=== PATIENT | male | born 1985 | race Caucasian/White ===

== ENCOUNTER 2022-06-12 20:03 | Emergency (ER) | payer SELFPAY ==
[2022-06-12] MEDS ORDERED: LIDOCAINE 1% MPF 5 ML VIAL ONE (20:49)
[2022-06-12] MEDS ORDERED: BUPIVACAINE 0.5% PF 10 ML VIAL ONE (20:50)
[2022-06-12] MEDS ORDERED: TDAP (DIPHTH,PERTUSS(ACELL),TET VAC) 0.5 ML VIAL IMVAC ONE (20:50)
[2022-06-12] MEDS ORDERED: HYDROCODONE/APAP 5/325 MG TAB ONE (20:50)
[2022-06-12] MEDS ORDERED: IBUPROFEN 400 MG TAB ONE (20:50)
--- NOTE | 2022-06-12 20:56 | RAD REPORT ---
EXAM DESCRIPTION: RAD - Foot Left 3 View - 06/12/2022 8:43 pm CLINICAL HISTORY: Left Foot pain FINDINGS: The toenail of the first digit is avulsed. A 2 millimeter density lies adjacent to the lateral aspect of the first terminal tuft. Most likely it is chronic. No acute fracture or dislocation seen
--- NOTE | 2022-06-12 21:34 | EDPHYS ---
Physician Documentation [facility] Name: Mariano Aldana Age: 36 yrs Sex: Male : 1985 Arrival Date: 06/12/2022 Time: 20:06 Bed 7 Private MD: ED Physician Ivan Morton HPI: 06/12 20:30 This 36 yrs old Male presents to ER via Ambulatory with complaints of Toe Injury. cp Historical: - Allergies: 20:23 No Known Allergies; ha1 - Home Meds: 20:23 None [Active]; ha1 - PMHx: 20:23 None; ha1 - PSHx: 20:23 None; ha1 - Immunization history:: Adult Immunizations not up to date. - Social history:: Smoking status: Patient reports the use of cigarette tobacco products, smokes two packs cigarettes per day. Vital Signs: 20:20 BP 128 / 75; Pulse 100; Resp 15; Temp 98.5; Pulse Ox 99% on R/A; Weight 70.76 kg; ha1 Height 5 ft. 11 in. ; Pain 7/10; 21:22 BP 116 / 84; Pulse 100; Resp 16; Pulse Ox 97% on R/A; jb4 20:20 Body Mass Index 21.76 (70.76 kg, 180.34 cm) ha1 20:20 Pain Scale: Adult ha1 MDM: 20:31 Patient medically screened. 06/12 20:33 Order name: XRAY Foot LEFT 3 View; Complete Time: 21:06 cp 06/12 21:06 Interpretation: Reviewed report. 06/12 20:33 Order name: Wound Care; Complete Time: 21:27 06/12 21:30 Order name: Wound dressing cp Administered Medications: 21:09 Drug: HYDROcodone-acetaminophen PO 5 mg-325 mg 1 tabs Route: PO; pf1 21:26 Follow up: Response: No adverse reaction; Marked relief of symptoms jb4 21:09 Drug: Ibuprofen PO 800 mg Route: PO; pf1 21:26 Follow up: Response: No adverse reaction; Marked relief of symptoms jb4 21:09 Drug: Tetanus-Diphtheria Toxoid IM Adult 0.5 ml {Caddie Supervisor: [employer] ([employer]). pf1 Exp: 02/12/2023. Lot #: [id number]. } Route: IM; Site: right deltoid; 21:26 Follow up: Response: No adverse reaction jb4 21:26 Drug: Bupivacaine Infiltration (0.5 %) 5 ml {Note: Administered by ER provider..} jb4 Volume: 10 ml; Route: Infiltration; 21: Drug: Lidocaine Infiltration (1 %) 5 ml {Note: Administered by ER provider..} Volume: 5 jb4 ml; Route: Infiltration; Disposition Summary: 06/12/22 21:34 Discharge Ordered Location: Home cp Problem: new cp Symptoms: have improved cp Condition: Stable cp Diagnosis - Nail disorder, unspecified - left great toenail avulsion cp Followup: cp - With: Private Physician - When: 2 - 3 days - Reason: Worsening of condition Forms: - Medication Reconciliation Form cp - Thank You Letter cp - Antibiotic Education cp - Prescription Opioid Use cp Signatures: Dispatcher [employer] EDMS Primo Osman PA PA cp Mariano Shoemaker RN RN jb4 Arline Braxton RN RN ha1 Esther mccarthy RN RN pf1
--- NOTE | 2022-06-12 21:34 | ER ---
Nurse's Notes [facility] Name: Mariano Aldana Age: 36 yrs Sex: Male : 1985 Arrival Date: 06/12/2022 Time: 20:06 Bed 7 Private MD: Diagnosis: Nail disorder, unspecified-left great toenail avulsion Presentation: 06/12 20:20 Chief complaint: Patient states: I was opening the a door an I pulled my nail out with ha1 the door. Coronavirus screen: Vaccine status: Patient reports being unvaccinated. Ebola Screen: No symptoms or risks identified at this time. Initial Sepsis Screen: Does the patient meet any 2 criteria? No. Patient's initial sepsis screen is negative. Does the patient have a suspected source of infection? No. Patient's initial sepsis screen is negative. Risk Assessment: Do you want to hurt yourself or someone else? Patient reports no desire to harm self or others. Onset of symptoms was June 12, 2022. 20:20 Method Of Arrival: Ambulatory ha1 20:20 Acuity: KATHRYN 4 ha1 Triage Assessment: 20:23 General: Appears comfortable, Behavior is calm, cooperative. Pain: Complains of pain in ha1 Left first toenail Pain does not radiate. Pain currently is 7 out of 10 on a pain scale. EENT: No signs and/or symptoms were reported regarding the EENT system. Neuro: Level of Consciousness is awake, alert, obeys commands, Oriented to person, place, time, situation. Cardiovascular: Capillary refill < 3 seconds Patient's skin is warm and dry. Respiratory: Airway is patent Respiratory effort is even, unlabored, Respiratory pattern is regular, symmetrical. GI: No signs and/or symptoms were reported involving the gastrointestinal system. : No signs and/or symptoms were reported regarding the genitourinary system. Derm: Skin is pink, warm \T\ dry. Musculoskeletal: Circulation, motion, and sensation intact. Range of motion:. Injury Description: left foot big toe laceration. Historical: - Allergies: 20:23 No Known Allergies; ha1 - Home Meds: 20:23 None [Active]; ha1 - PMHx: 20:23 None; ha1 - PSHx: 20:23 None; ha1 - Immunization history:: Adult Immunizations not up to date. - Social history:: Smoking status: Patient reports the use of cigarette tobacco products, smokes two packs cigarettes per day. Assessment: 21:22 Reassessment: Patient appears in no apparent distress at this time. Patient and/or jb4 family updated on plan of care and expected duration. Pain level reassessed. Patient is alert, oriented x 3, equal unlabored respirations, skin warm/dry/pink. Vital Signs: 20:20 BP 128 / 75; Pulse 100; Resp 15; Temp 98.5; Pulse Ox 99% on R/A; Weight 70.76 kg; ha1 Height 5 ft. 11 in. ; Pain 7/10; 21:22 BP 116 / 84; Pulse 100; Resp 16; Pulse Ox 97% on R/A; jb4 20:20 Body Mass Index 21.76 (70.76 kg, 180.34 cm) ha1 20:20 Pain Scale: Adult ha ED Course: 20:06 Patient arrived in ED. jj6 20:09 Primo Osman PA is PHCP. cp 20:09 Ivan Morton DO is Attending Physician. cp 20:23 Triage completed. ha1 20:23 Arm band placed on left wrist. ha1 20:45 XRAY Foot LEFT 3 View In Process Unspecified. EDMS 21:24 Mariano Shoemaker, RN is Primary Nurse. jb4 Administered Medications: 21:09 Drug: HYDROcodone-acetaminophen PO 5 mg-325 mg 1 tabs Route: PO; pf1 21:26 Follow up: Response: No adverse reaction; Marked relief of symptoms 4 21:09 Drug: Ibuprofen PO 800 mg Route: PO; pf1 21:26 Follow up: Response: No adverse reaction; Marked relief of symptoms 4 21:09 Drug: Tetanus-Diphtheria Toxoid IM Adult 0.5 ml {Digital Imaging Specialist: [employer] ([employer]). pf1 Exp: 02/12/2023. Lot #: [id number]. } Route: IM; Site: right deltoid; 21:26 Follow up: Response: No adverse reaction 4 21:26 Drug: Bupivacaine Infiltration (0.5 %) 5 ml {Note: Administered by ER provider..} jb4 Volume: 10 ml; Route: Infiltration; 21:26 Drug: Lidocaine Infiltration (1 %) 5 ml {Note: Administered by ER provider..} Volume: 5 jb4 ml; Route: Infiltration; Outcome: 21:34 Discharge ordered by . cp Signatures: Dispatcher [employer] EDPrimo Smith PA PA cp Bryson, James RN RN jb4 Cynthia [email or web address] Arline Braxton RN RN ha1 Esther mccarthy RN RN pf1
[2022-06-13 01:44] VITALS: TEMP 98.7
[2022-06-13 01:49] VITALS: BP 113/46; O2SAT 96
== END 2022-06-12 21:42 | disposition home or self-care (01) ==
LOC: ER 20:03
DX: S91.202A Unspecified open wound of left great toe with damage to nail, initial encounter (principal); Z23 Encounter for immunization; F17.210 Nicotine dependence, cigarettes, uncomplicated
CPT/HCPCS: 90471; 99283; J2001

== ENCOUNTER 2023-01-04 14:27 | Emergency (ER) | payer SELFPAY ==
[2023-01-04 15:04] LABS: Absolute Lymphocytes (CBC) 2.2 K/uL (0.7-4.9); Hematocrit 37.1 % (39.6-49.0); Lymphocytes % 24.7 % (15.3-44.8); MCV 90.3 fL (80-100); MPV 9.1 fL (7.6-11.3); Platelets 191 thou/uL (152-406); RBC Red Blood Cell Count 4.11 M/uL (4.33-5.43)
[2023-01-04 15:08] LABS: Protime INR 0.93
[2023-01-04 15:28] LABS: ALT/SGPT 15 U/L (16-61); AST/SGOT 12 U/L (15-37); Albumin 3.2 g/dL (3.4-5.0); Alkaline Phosphatase 77 U/L (45-117); BUN Blood Urea Nitrogen 9 mg/dL (7-18); Bicarbonate 29 mEq/L (21-32); Bilirubin Total 0.3 mg/dL (0.2-1.0); Glomerular Filtration Rate 111 ml/min (=/>90); Glucose Level 104 mg/dL (74-106); Potassium 3.5 mEq/L (3.5-5.1); Protein, Total 6.2 g/dL (6.4-8.2); Sodium Level 143 mEq/L (136-145)
[2023-01-04 15:29] LABS: Bilirubin Direct < 0.1 mg/dL (0-0.2); Bilirubin Indirect, Calculated ND mg/dL (0.2-0.8)
[2023-01-04 16:03] LABS: Barbiturates NEGATIVE (NEGATIVE); Benzodiazepines NEGATIVE (NEGATIVE); Cocaine NEGATIVE (NEGATIVE); METHAMPHETAM POSITIVE (NEGATIVE); Opiates NEGATIVE (NEGATIVE); Phencyclidine NEGATIVE (NEGATIVE); THC Cannibis NEGATIVE (NEGATIVE)
[2023-01-04 16:13] LABS: Methadone ND (NEGATIVE)
--- NOTE | 2023-01-04 19:45 | ER ---
Nurse's Notes [facility] Name: Mariano Aldana Age: 37 yrs Sex: Male : 1985 Arrival Date: 01/04/2023 Time: 14:27 Bed 5 Private MD: Diagnosis: Suicidal ideations Presentation: 01/04 14:35 Chief complaint: Mental health deputy reports patient denies homicidal and suicidal rs5 ideation but has been posting suicidal ideation posts on social media for past week and told neighbor pt wishes to lay down in front of a moving train. Law enforcement were called and mental health deputy brought patient into the ER for a check up. 14:35 Coronavirus screen: At this time, the client does not indicate any symptoms associated rs5 with coronavirus-19. Ebola Screen: No symptoms or risks identified at this time. Initial Sepsis Screen: Does the patient meet any 2 criteria? No. Patient's initial sepsis screen is negative. Does the patient have a suspected source of infection? No. Patient's initial sepsis screen is negative. Risk Assessment: Do you want to hurt yourself or someone else? Other: Pt denies homicidal or suicidal ideation but told neighbor he wishes to lay down in front of a moving train. Onset of symptoms was January 04, 2023. 14:35 Method Of Arrival: Law Enforcement rs5 14:35 Acuity: KATHRYN 2 rs5 Historical: - Allergies: 14:40 No Known Allergies; rs5 - PMHx: 14:40 Anxiety; Depressive disorder; rs5 - PSHx: 14:35 None; rs5 - Immunization history:: Adult Immunizations unknown. - Social history:: Smoking status: Patient reports the use of cigarette tobacco products, smokes one pack cigarettes per day. Screenin:31 [facility] ED Fall Risk Assessment (Adult) History of falling in the last 3 months, lg3 including since admission No falls in past 3 months (0 pts). Abuse screen: Denies threats or abuse. Denies injuries from another. Nutritional screening: No deficits noted. Tuberculosis screening: No symptoms or risk factors identified. Assessment: 14:35 General: Appears in no apparent distress. comfortable, Behavior is calm, cooperative. rs5 Pain: Denies pain. Neuro: Level of Consciousness is awake, alert, obeys commands, Oriented to person, place, time, situation. Cardiovascular: Rhythm is regular. Respiratory: Airway is patent Respiratory effort is even, unlabored, Respiratory pattern is regular, symmetrical. GI: Abdomen is flat, non-distended, Abd is soft and non tender X 4 quads. : No signs and/or symptoms were reported regarding the genitourinary system. EENT: No signs and/or symptoms were reported regarding the EENT system. Derm: Skin is pink, warm \\T\\ dry. Musculoskeletal: Range of motion: intact in all extremities. 15:09 Reassessment: Pt placed in paper scrubs, room cleared, sitter at bedside, suicidal rs5 screen has been completed. 16:00 Reassessment: Pt in bed, eyes closed, respirations even unlabored, side rails up times rs5 two, bed in lowest position. 17:05 Reassessment: No changes from previously documented assessment. rs5 18:10 Reassessment: Patient and/or family updated on plan of care and expected duration. Pain rs5 level reassessed. Patient is alert, oriented x 3, equal unlabored respirations, skin warm/dry/pink. 19:00 General: [facility] national sales representative at bedside; pt being cooperative. km8 19:29 General: Appears in no apparent distress. comfortable, Behavior is calm, cooperative. km8 Pain: Denies pain. Neuro: No deficits noted. Lundy Agitation-Sedation Scale (RASS): 0 - Alert and Calm Level of Consciousness is awake, alert, obeys commands, Oriented to person, place, time, situation. Cardiovascular: No deficits noted. Denies chest pain, shortness of breath. Respiratory: No deficits noted. Airway is patent Respiratory effort is even, unlabored, Respiratory pattern is regular, symmetrical. GI: No deficits noted. No signs and/or symptoms were reported involving the gastrointestinal system. : No deficits noted. No signs and/or symptoms were reported regarding the genitourinary system. EENT: No deficits noted. No signs and/or symptoms were reported regarding the EENT system. Derm: Skin is intact, is healthy with good turgor, Skin is dry, Skin is normal, Skin temperature is warm. Musculoskeletal: No deficits noted. No signs and/or symptoms reported regarding the musculoskeletal system. Circulation, motion, and sensation intact. Range of motion: intact in all extremities. 20:00 Reassessment: Patient appears in no apparent distress at this time. No changes from km8 previously documented assessment. pt resting with eyes closed, in no distress at this time; with sitter at bedside. 20:33 General: Spoke with Romero from [facility] for Nurse to nurse; requested more km documents to be faxed, notified desk tech. 21:00 Reassessment: Patient appears in no apparent distress at this time. No changes from km8 previously documented assessment. pt resting comfortably with eyes closed. 22:00 Reassessment: Patient appears in no apparent distress at this time. No changes from km8 previously documented assessment. pt resting comfortably with eyes closed. 23:00 Reassessment: Patient appears in no apparent distress at this time. No changes from km8 previously documented assessment. pt resting comfortably with eyes closed at this time. 01/05 00:00 Reassessment: Patient appears in no apparent distress at this time. No changes from km8 previously documented assessment. pt resting comfortably with eyes closed at this time. 01:00 Reassessment: Patient appears in no apparent distress at this time. No changes from km8 previously documented assessment. pt resting comfortably with eyes closed at this time. 02:00 Reassessment: Patient appears in no apparent distress at this time. No changes from km8 previously documented assessment. pt resting comfortably with eyes closed at this time. 02:41 General: spoke with Cassandra from [facility] for nurse to nurse; she stated km8 he is accepted. 03:00 Reassessment: Patient appears in no apparent distress at this time. No changes from km8 previously documented assessment. pt resting comfortably with eyes closed at this time. Psych: 01/04 19:00 [place] Suicide Severity Screening: In the past month, have you wished you were km8 or wished you could go to sleep and not wake up? Patient responds "No." "In the past month, have you actually had any thoughts of killing yourself?" Patient responds "yes." "In your lifetime, have you ever done anything, started to do anything, or prepared to do anything to end your life?" Patient responds "yes.". Subjective: Patient's mood is flat Delusions are denied, Hallucinations are denied. Objective: Patient is cooperative, guarded, using poor eye contact, Speech is normal, Affect is flat. Interventions: Removed personal items and placed in bag. Searched person for dangerous items. Patient reassessed during use of restraints. Patient is physically safe. Safety Checks: Personal items have been removed. Door is open. No visitors are present at this time. Pt denies substance abuse. Commitment: Patient will be a voluntary commitment. CELE on file. Vital Signs: 14:40 BP 116 / 87 LA Supine (auto/reg); Pulse 76 MON; Resp 14 S; Temp 98.3(O); Pulse Ox 98% rs5 on R/A; Weight 68.95 kg; Height 5 ft. 11 in. ; 18:05 BP 120 / 82; Pulse 72; Resp 17; Pulse Ox 99% on R/A; rs5 19:00 BP 116 / 71; Pulse 85; Resp 14 S; Temp 97.9(O); Pulse Ox 96% on R/A; Pain 0/10; km8 01/05 03:20 BP 118 / 75; Pulse 79; Resp 16; Pulse Ox 97% on R/A; Pain 0/10; 8 01/04 14:40 Body Mass Index 21.20 (68.95 kg, 180.34 cm) rs5 19:00 Pain Scale: Adult 8 01/05 03:20 Pain Scale: Adult [facility] ED Course: 01/04 14:31 Patient arrived in ED. bd 14:32 [facility] Harper [facility]. jh7 14:32 Carlo Wilson MD is Attending Physician. jh7 14:40 Inserted saline lock: 22 gauge in right antecubital area, using aseptic technique. rs5 Blood collected. 15:00 Chris Manning RN is Primary Nurse. rs5 15:06 Triage completed. rs5 16:27 contacted [facility] to have a screener evaluate pt. bd 19:00 Safety Checks: The door is open or patient has been placed in a hallway bed/chair. km8 There are no family/friend visitors at this time Sitter present at this time. 19:00 Arm band placed on right wrist. km8 19:17 Primary Nurse role handed off by Chris Manning, RN km8 19:17 Aislinn Rayo RN is Primary Nurse. km8 19:31 Patient maintains SpO2 saturation greater than 95% on room air. lg3 19:31 Patient has correct armband on for positive identification. Bed in low position. Side lg3 rails up X 1. Noise minimized. Warm blanket given. 19:48 [facility] has recommended In-Patient care, will fax clinicals to facilities for rv1 placement. 19:54 Faxed Pt clinicals to the following facilities for placement; [place] [id number] behavioral, [facility], [facility], [facility], [facility], [facility], [facility], [facility]. 20:00 Safety Checks: The door is open or patient has been placed in a hallway bed/chair. km8 There are no family/friend visitors at this time Sitter present at this time. 20:29 Nurse to Nurse with Romero at [facility]. rv1 20:46 Romero at [facility] said Dr. jackson but they do not currently have a bed for pt rv1 but will have one at 0800 and will call back with [facility] then. 21:00 Safety Checks: The door is open or patient has been placed in a hallway bed/chair. km8 There are no family/friend visitors at this time Sitter present at this time. 22:00 Safety Checks: The door is open or patient has been placed in a hallway bed/chair. km8 There are no family/friend visitors at this time Sitter present at this time. 23:00 Safety Checks: The door is open or patient has been placed in a hallway bed/chair. km8 There are no family/friend visitors at this time Sitter present at this time. 01/05 00:00 Safety Checks: The door is open or patient has been placed in a hallway bed/chair. km8 There are no family/friend visitors at this time Sitter present at this time. 01:00 Safety Checks: The door is open or patient has been placed in a hallway bed/chair. km8 There are no family/friend visitors at this time Sitter present at this time. 02:00 Safety Checks: The door is open or patient has been placed in a hallway bed/chair. km8 There are no family/friend visitors at this time Sitter present at this time. 02:32 Nurse to Nurse with Cassandra at [facility]. rv1 02:40 pt accepted to [facility] by Dr. Farrar. rv1 03:00 Safety Checks: The door is open or patient has been placed in a hallway bed/chair. km8 There are no family/friend visitors at this time Sitter present at this time. 03:35 No provider procedures requiring assistance completed. IV discontinued, intact, km8 bleeding controlled, No redness/swelling at site. Pressure dressing applied. Administered Medications: No medications were administered Medication: 03:35 VIS not applicable for this client. km8 Outcome: 01/04 19:45 ER care complete, transfer ordered by 7 01/05 03:35 Transferred by ground EMS Note: [facility] km8 Condition: stable Discharge instructions given to patient, Instructed on the need for transfer, Demonstrated understanding of instructions, 03:52 Patient left the ED. km8 Signatures: Abril Randall Donovan ds4 Kyra Huang, RN RN lg3 Cynthia Harper, MAMMAL CONTROL AGENT MAMMAL CONTROL AGENT jh7 Sharon Hanks rv1 Chris Manning, RN RN rs5 Aislinn Rayo RN RN km8 Corrections: (The following items were deleted from the chart) 01/04 18:38 14:35 Acuity: KATHRYN 3 rs5 rs5 19:25 14:35 Allergies: No Known Allergies; rs5 rs5 19:25 14:35 PMHx: None; rs5 rs5 19:25 14:40 Allergies: Anxiety; rs5 rs5 19:25 15:47 BP 116 / 87 Supine Auto L Arm Regular; Pulse 76bpm Monitor; Resp 14bpm; rs5 Spontaneous; Pulse Ox 98% RA; Temp 98.3F Oral; 68.95 kg; Height 5 ft. 11 in.; BMI: 21.2; ds4 19:34 19:29 General: Appears in no apparent distress. comfortable, Behavior is calm, km8 cooperative, km8 01/05 00:24 01/04 20:00 Reassessment: Patient appears in no apparent distress at this time. No km8 changes from previously documented assessment. Patient and/or family updated on plan of care and expected duration. Pain level reassessed. Patient is alert, oriented x 3, equal unlabored respirations, skin warm/dry/pink. Patient denies pain at this time. pt resting with eyes closed, in no distress at this time; with sitter at bedside. km8 01/06 00:24 01/04 21:00 Reassessment: Patient appears in no apparent distress at this time. No km8 changes from previously documented assessment. Patient and/or family updated on plan of care and expected duration. Pain level reassessed. Patient is alert, oriented x 3, equal unlabored respirations, skin warm/dry/pink. Patient denies pain at this time. pt resting comfortably with eyes closed. km8 01/06 00:01/04 22:00 Reassessment: Patient appears in no apparent distress at this time. No km8 changes from previously documented assessment. Patient and/or family updated on plan of care and expected duration. Pain level reassessed. Patient is alert, oriented x 3, equal unlabored respirations, skin warm/dry/pink. Patient denies pain at this time. pt resting comfortably with eyes closed. 8 01/06 00:01/04 22:00 Reassessment: Patient appears in no apparent distress at this time. No km8 changes from previously documented assessment. Patient and/or family updated on plan of care and expected duration. Pain level reassessed. Patient is alert, oriented x 3, equal unlabored respirations, skin warm/dry/pink. Patient denies pain at this time. pt resting comfortably with eyes closed. 8 01/06 00:26 01/04 23:00 Reassessment: Patient appears in no apparent distress at this time. No km8 changes from previously documented assessment. Patient and/or family updated on plan of care and expected duration. Pain level reassessed. Patient is alert, oriented x 3, equal unlabored respirations, skin warm/dry/pink. Patient denies pain at this time. km8 01/06 00:01/04 20:00 Reassessment: Patient appears in no apparent distress at this time. No km8 changes from previously documented assessment. Patient and/or family updated on plan of care and expected duration. Pain level reassessed. Patient is alert, oriented x 3, equal unlabored respirations, skin warm/dry/pink. pt resting with eyes closed, in no distress at this time; with sitter at bedside. km8 01/06 00:01/04 21:00 Reassessment: Patient appears in no apparent distress at this time. No km8 changes from previously documented assessment. Patient and/or family updated on plan of care and expected duration. Pain level reassessed. Patient is alert, oriented x 3, equal unlabored respirations, skin warm/dry/pink. pt resting comfortably with eyes closed. km8 01/05 00:01/04 22:00 Reassessment: Patient appears in no apparent distress at this time. No km8 changes from previously documented assessment. Patient and/or family updated on plan of care and expected duration. Pain level reassessed. Patient is alert, oriented x 3, equal unlabored respirations, skin warm/dry/pink. pt resting comfortably with eyes closed. km8 01/05 00:01/04 23:00 Reassessment: Patient appears in no apparent distress at this time. No km8 changes from previously documented assessment. Patient and/or family updated on plan of care and expected duration. Pain level reassessed. Patient is alert, oriented x 3, equal unlabored respirations, skin warm/dry/pink. pt resting comfortably with eyes closed at this time. km8 01/05 00: 00:00 Reassessment: Patient appears in no apparent distress at this time. No changes km8 from previously documented assessment. Patient and/or family updated on plan of care and expected duration. Pain level reassessed. Patient is alert, oriented x 3, equal unlabored respirations, skin warm/dry/pink. pt resting comfortably with eyes closed at this time. km8
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
[2023-01-05 03:58] VITALS: TEMP 97.9
[2023-01-05 03:59] VITALS: BP 118/75; O2SAT 97
--- NOTE | 2023-01-05 12:37 | EKG ---
Test Date: 2023-01-04 Test Time: 14:56:45 Bleach Range Operator: CARLOS MEASUREMENT RESULTS: Intervals: Rate: 81 TN: 122 QRSD: 88 QT: 370 QTc: 429 [place]: P: 55 TN: 122 QRS: 80 T: 14 INTERPRETIVE STATEMENTS: Normal sinus rhythm Normal ECG No previous ECG available for comparison Electronically Signed On 01-05-23 12:36:19 CDT by Palomo Villalobos
== END 2023-01-05 03:52 ==
LOC: ER 14:27
DX: R45.851 Suicidal ideations (principal)
CPT/HCPCS: 36415; 80048; 80076; 80143; 80179; 80307; 82077; 85025; 85610; 85730; 93005

== ENCOUNTER 2023-09-23 12:41 | Emergency (ER) | payer OTHER, SELFPAY ==
--- OUTSIDE RECORDS SUMMARY | 2023-09-23 12:43 | XMS REPORT | Continuity of Care Document ---
Author Name Unknown Address [address] [place] [address] thconnect Address [address] [place] [address] 1 [address] [place] [address] Care Team Providers Care Ship Self Defense System Mk1 Operator Name Role Phone Unavailable Unavailable Unavailable Encounters Start Date/Time End Date/Time Encounter Type Admission Type Attending Clinicians Care Facility Care Department Encounter ID Source 2023-01-10 15:53:47 2023-01-10 15:53:47 Outpatient [facility] [id number] Eben Stover
--- NOTE | 2023-09-23 13:09 | EDPHYS ---
Physician Documentation [facility] Name: Mariano Aldana Age: 37 yrs Sex: Male : 1985 Arrival Date: 09/23/2023 Time: 12:41 Bed IW1 Private MD: ED Physician Carlo Wilson HPI: 09/22 13:07 This 37 yrs old Male presents to ER via Ambulatory with complaints of Suture Removal. rn 13:07 The patient has sutures on the left arm. Previous treatment: the care was rendered at rn another emergency department. The patient has not experienced similar symptoms in the past. Patient reports had 5 sutures placed in left wrist 13 days ago in [place], lives here and was traveling so came here for suture removal. No drainage. No fever. No signs of infection.. Historical: - Allergies: :58 No Known Allergies; aa5 - PMHx: :58 Anxiety; depressive disorder; aa5 - Immunization history:: Last tetanus immunization: up to date. - Infectious Disease History:: Denies. - Social history:: Smoking status: Patient reports the use of cigarette tobacco products. - Family history:: not pertinent. - Hospitalizations: : No recent hospitalization is reported. ROS: 13:07 Constitutional: Negative for fever, chills, and weight loss, MS/Extremity: Negative for rn injury and deformity, Exam: 13:07 Constitutional: This is a well developed, well nourished patient who is awake, alert, rn and in no acute distress. MS/ Extremity: Pulses equal, no cyanosis. Left wrist with [address], center of wound still puckering and not completely healed. No signs of infection. No drainage. Vital Signs: 12:57 BP 113 / 72; Pulse 112; Resp 20 S; Temp 98.5(O); Pulse Ox 98% on R/A; Weight 76.2 kg aa5 (R); Height 5 ft. 11 in. (R); 12:57 Body Mass Index 23.43 (76.20 kg, 180.34 cm) aa5 MDM: 12:52 Patient medically screened. rn 13:07 Data reviewed: vital signs, nurses notes, and as a result, I will discharge patient. rn Counseling: I had a detailed discussion with the patient and/or guardian regarding the historical points, exam findings, and any diagnostic results supporting the discharge/admit diagnosis, the need for outpatient follow up, to return to the emergency department if symptoms worsen or persist or if there are any questions or concerns that arise at home. Special discussion: I discussed with the patient/guardian in detail that at this point there is no indication for admission to the hospital. It is understood, however, that if the symptoms persist or worsen the patient needs to return immediately for re-evaluation. Administered Medications: No medications were administered Disposition Summary: 09/23/23 13:09 Discharge Ordered Notes: Location: Home rn Problem: new rn Symptoms: have improved rn Condition: Stable rn Diagnosis - Encounter for attention to dressings, sutures and drains rn Followup: rn - With: Private Physician - When: As needed - Reason: Recheck today's complaints, Re-evaluation by your physician Discharge Instructions: - Discharge Summary Sheet rn - Sutured furnace converter Forms: - Medication Reconciliation Form rn - Antibiotic manager of international - Prescription Opioid Use rn - Patient Portal Instructions rn - Leadership Thank You Letter rn Signatures: Carlo Wilson MD MD rn Calderon, Audri RN RN aa5
--- NOTE | 2023-09-23 13:09 | ER ---
Nurse's Notes [facility] Name: Mariano Aldana Age: 37 yrs Sex: Male : 1985 Arrival Date: 09/23/2023 Time: 12:41 Bed IW1 Private MD: Diagnosis: Encounter for attention to dressings, sutures and drains Presentation: 09/22 12:57 Chief complaint: Patient states: need for sutures to be removed, sutures noted to left aa5 wrist. Coronavirus screen: At this time, the client does not indicate any symptoms associated with coronavirus-19. Ebola Screen: Patient denies travel to an Ebola-affected area in the 21 days before illness onset. Initial Sepsis Screen: Does the patient meet any 2 criteria? No. Patient's initial sepsis screen is negative. Does the patient have a suspected source of infection? No. Patient's initial sepsis screen is negative. Risk Assessment: Do you want to hurt yourself or someone else? Patient reports no desire to harm self or others. Onset of symptoms was September 23, 2023. 12:57 Method Of Arrival: Ambulatory aa5 12:57 Acuity: KATHRYN 4 aa5 Historical: - Allergies: 12:58 No Known Allergies; aa5 - PMHx: 12:58 Anxiety; depressive disorder; aa5 - Immunization history:: Last tetanus immunization: up to date. - Infectious Disease History:: Denies. - Social history:: Smoking status: Patient reports the use of cigarette tobacco products. - Family history:: not pertinent. - Hospitalizations: : No recent hospitalization is reported. Screenin:00 [facility] ED Fall Risk Assessment (Adult) History of falling in the last 3 months, aa5 including since admission No falls in past 3 months (0 pts) Confusion or Disorientation No (0 pts) Intoxicated or Sedated No (0 pts) Impaired Gait No (0 pts) Mobility Assist Device Used No (0 pt) Altered Elimination No (0 pt) Score/Fall Risk Level 0 - 2 = Low Risk Oriented to surroundings, Maintained a safe environment, Educated pt \T\ family on fall prevention, incl call for assistance when getting out of bed. Abuse screen: Denies threats or abuse. Nutritional screening: No deficits noted. Tuberculosis screening: No symptoms or risk factors identified. Assessment: 13:00 General: Appears comfortable, Behavior is calm, cooperative. Pain: Denies pain. Neuro: aa5 Level of Consciousness is awake, alert, obeys commands, Oriented to person, place, time, situation. Cardiovascular: Patient's skin is warm and dry. Respiratory: Airway is patent Respiratory effort is even, unlabored, Respiratory pattern is regular, symmetrical. GI: No signs and/or symptoms were reported involving the gastrointestinal system. : No signs and/or symptoms were reported regarding the genitourinary system. EENT: No signs and/or symptoms were reported regarding the EENT system. Derm: Skin is pink, warm \T\ dry. Sutures noted to left wrist. Musculoskeletal: Range of motion: intact in all extremities. 13:10 Reassessment: Patient is alert, oriented x 3, equal unlabored respirations, skin aa5 warm/dry/pink. Vital Signs: 12:57 BP 113 / 72; Pulse 112; Resp 20 S; Temp 98.5(O); Pulse Ox 98% on R/A; Weight 76.2 kg aa5 (R); Height 5 ft. 11 in. (R); 12:57 Body Mass Index 23.43 (76.20 kg, 180.34 cm) aa5 ED Course: 12:45 Patient arrived in ED. ra3 12:51 Carlo Wilson MD is Attending Physician. rn 12:57 Triage completed. aa5 12:57 Arm band placed on. aa5 12:57 Patient has correct armband on for positive identification. aa5 13:10 No provider procedures requiring assistance completed. Patient did not have IV access aa5 during this emergency room visit. Administered Medications: No medications were administered Medication: 13:00 VIS not applicable for this client. aa5 Outcome: 13:09 Discharge ordered by . rn 13:10 Discharged to home ambulatory, aa5 13:10 Condition: good 13:10 Discharge instructions given to patient, Instructed on discharge instructions, follow up and referral plans. Demonstrated understanding of instructions, follow-up care, 13:13 Patient left the ED. jr12 Signatures: Carlo Wilson MD MD rn Calderon, Audri, RN RN aa5 Rolanda Huizar jr12 Teresa Coleman ra3
[2023-09-23 14:13] VITALS: BP 113/72; TEMP 98.5; O2SAT 98
== END 2023-09-23 13:13 | disposition home or self-care (01) ==
LOC: ER 12:41
DX: Z48.00 Encounter for change or removal of nonsurgical wound dressing (principal)
CPT/HCPCS: 99282

== ENCOUNTER 2023-09-28 12:13 | Emergency (ER) | payer OTHER ==
--- OUTSIDE RECORDS SUMMARY | 2023-09-28 12:17 | XMS REPORT | Continuity of Care Document ---
Author Name Unknown Address [address] [place] [address] [place] [address] thconnect Address [address] [place] [address] 1 [address] [place] [address] Care Team Providers Care Foreclosure Clerk Name Role Phone Unavailable Unavailable Unavailable Encounters Start Date/Time End Date/Time Encounter Type Admission Type Attending Clinicians Care Facility Care Department Encounter ID Source 2023-01-10 15:53:47 2023-01-10 15:53:47 Outpatient [facility] [id number] Eben Stover
--- NOTE | 2023-09-28 12:54 | ER ---
Nurse's Notes [facility] Name: Mariano Aldana Age: 37 yrs Sex: Male : 1985 Arrival Date: 09/28/2023 Time: 12:13 Bed 12 Private MD: Diagnosis: Encounter for removal of sutures Presentation: 09/27 12:25 Chief complaint: Patient states: LEFT ARM SUTURE REMOVAL. SUTURES PLACED 14 DAYS AGO. db SKIN INTACT. NO REDNESS. SUTURES INTACT. Coronavirus screen: Client denies travel out of the [place] in the last 14 days. At this time, the client does not indicate any symptoms associated with coronavirus-19. Ebola Screen: Patient negative for fever greater than or equal to 101.5 degrees Fahrenheit, and additional compatible Ebola Virus Disease symptoms Patient denies exposure to infectious person. Patient denies travel to an Ebola-affected area in the 21 days before illness onset. No symptoms or risks identified at this time. Initial Sepsis Screen: Does the patient meet any 2 criteria? No. Patient's initial sepsis screen is negative. Does the patient have a suspected source of infection? No. Patient's initial sepsis screen is negative. Risk Assessment: Do you want to hurt yourself or someone else? Patient reports no desire to harm self or others. Onset of symptoms was September 28, 2023. 12:25 Method Of Arrival: Ambulatory db 12:25 Acuity: KATHRYN 5 db Triage Assessment: 12:26 General: Appears in no apparent distress. comfortable, Behavior is calm, cooperative. db Pain: Denies pain. Neuro: No deficits noted. Level of Consciousness is awake, alert, obeys commands, Oriented to person, place, time, situation. Derm: Skin is intact, Skin is pink, warm \T\ dry. Historical: - Allergies: 12:26 No Known Allergies; db - PMHx: 12:26 Anxiety; depressive disorder; db - Immunization history:: Adult Immunizations unknown. - Infectious Disease History:: Denies. - Social history:: Smoking status: Patient reports the use of cigarette tobacco products, smokes one pack cigarettes per day. Screenin:29 [facility] ED Fall Risk Assessment (Adult) History of falling in the last 3 months, ko1 including since admission No falls in past 3 months (0 pts) Confusion or Disorientation No (0 pts) Intoxicated or Sedated No (0 pts) Impaired Gait No (0 pts) Mobility Assist Device Used No (0 pt) Altered Elimination No (0 pt) Score/Fall Risk Level 0 - 2 = Low Risk Oriented to surroundings, Maintained a safe environment, Educated pt \T\ family on fall prevention, incl call for assistance when getting out of bed, Assessed \T\ reinforced patient's understanding of fall precautions, Hourly rounding (assess needs \T\ fall precautionary measures) done. Abuse screen: Denies threats or abuse. Denies injuries from another. Nutritional screening: No deficits noted. Tuberculosis screening: No symptoms or risk factors identified. Assessment: 12:29 General: Appears in no apparent distress. Behavior is calm, cooperative, appropriate ko1 for age. Pain: Denies pain. Neuro: No deficits noted. Cardiovascular: No deficits noted. Respiratory: No deficits noted. GI: No deficits noted. : No deficits noted. EENT: No deficits noted. Derm: Skin is intact. Musculoskeletal: No deficits noted. Vital Signs: 12:25 BP 131 / 77; Pulse 91; Resp 18; Temp 98.2; Pulse Ox 99% on R/A; Weight 76.2 kg; Height db 5 ft. 11 in. ; 12:59 BP 128 / 74; Pulse 88; Resp 16; Pulse Ox 97% ; ko1 12:25 Body Mass Index 23.43 (76.20 kg, 180.34 cm) db ED Course: 12:15 Patient arrived in ED. ra3 12:26 Primo Camilo MD is Attending Physician. collins 12:26 Triage completed. db 12:27 Arm band placed on Patient placed. db 12:29 Steffanie Edwards, OREN is Primary Nurse. ko1 12:29 Patient has correct armband on for positive identification. Bed in low position. Call ko1 light in reach. Provided Education on: WOUND CARE AFTER SUTURE REMOVAL. Pulse ox on. NIBP on. Door closed. Noise minimized. Lights dimmed. Pillow given. 12:29 No provider procedures requiring assistance completed. Patient did not have IV access ko1 during this emergency room visit. Recheck. Removal of Removed sutures from left wrist Suture site is well healed Patient tolerated well. 12:59 Dressings: Margarita x 1 left wrist non-adherent dressing x 1 left wrist. ko1 Administered Medications: 13:00 Drug: Vevvzkes-Pzfxdzalnq-Nkysubspa Topical Ointment 1 application Topical once Route: ko1 Topical; Site: wound; Medication: 12:29 VIS not applicable for this client. ko1 Outcome: 12:53 Discharge ordered by . collins 12:59 Discharged to home ambulatory, ko1 12:59 Condition: stable 12:59 Discharge instructions given to patient, Instructed on discharge instructions, follow up and referral plans. wound care, Demonstrated understanding of instructions, follow-up care, wound care, 13:00 Patient left the ED. ko1 Signatures: Primo Camilo MD MD cha Oliver, Kathy, RN RN ko1 Morena Parra, RN RN Teresa Adorno ra3
--- NOTE | 2023-09-28 12:54 | EDPHYS ---
Physician Documentation [facility] Name: Mariano Aldana Age: 37 yrs Sex: Male : 1985 Arrival Date: 09/28/2023 Time: 12:13 Bed 12 Private MD: Primo Cox HPI: 09/27 12:50 This 37 yrs old Male presents to ER via Ambulatory with complaints of Suture collins Removal. 12:50 The patient has sutures on the left wrist. Previous treatment: The patient was collins initially treated 14 day(s) ago. Sutures/sydni progress: The patient has no c/o's. The wound is well-healing with no redness, swelling, discharge, or dehiscence reported. The patient has not experienced similar symptoms in the past. Historical: - Allergies: 12:26 No Known Allergies; db - PMHx: 12:26 Anxiety; depressive disorder; db - Immunization history:: Adult Immunizations unknown. - Infectious Disease History:: Denies. - Social history:: Smoking status: Patient reports the use of cigarette tobacco products, smokes one pack cigarettes per day. ROS: 12:51 Constitutional: Negative for fever, chills, and weight loss, Eyes: Negative for injury, collins pain, redness, and discharge, ENT: Negative for injury, pain, and discharge, Neck: Negative for injury, pain, and swelling, Cardiovascular: Negative for chest pain, palpitations, and edema, Respiratory: Negative for shortness of breath, cough, wheezing, and pleuritic chest pain, Abdomen/GI: Negative for abdominal pain, nausea, vomiting, diarrhea, and constipation, Back: Negative for injury and pain, : Negative for injury, bleeding, discharge, and swelling, Skin: Negative for injury, rash, and discoloration, Neuro: Negative for headache, weakness, numbness, tingling, and seizure, Psych: Negative for depression, anxiety, suicide ideation, homicidal ideation, and hallucinations, Allergy/Immunology: Negative for hives, rash, and allergies, Endocrine: Negative for neck swelling, polydipsia, polyuria, polyphagia, and marked weight changes, Hematologic/Lymphatic: Negative for swollen nodes, abnormal bleeding, and unusual bruising, 12:51 MS/extremity: Positive for tenderness, of the left arm, Exam: 12:51 Constitutional: This is a well developed, well nourished patient who is awake, alert, collins and in no acute distress. Head/Face: Normocephalic, atraumatic. Eyes: Pupils equal round and reactive to light, extra-ocular motions intact. Lids and lashes normal. Conjunctiva and sclera are non-icteric and not injected. Cornea within normal limits. Periorbital areas with no swelling, redness, or edema. ENT: Nares patent. No nasal discharge, no septal abnormalities noted. Tympanic membranes are normal and external auditory canals are clear. Oropharynx with no redness, swelling, or masses, exudates, or evidence of obstruction, uvula midline. Mucous membranes moist. Neck: Trachea midline, no thyromegaly or masses palpated, and no cervical lymphadenopathy. Supple, full range of motion without nuchal rigidity, or vertebral point tenderness. No Meningismus. Chest/axilla: Normal chest wall appearance and motion. Nontender with no deformity. No lesions are appreciated. Cardiovascular: Regular rate and rhythm with a normal S1 and S2. No gallops, murmurs, or rubs. Normal PMI, no JVD. No pulse deficits. Respiratory: Lungs have equal breath sounds bilaterally, clear to auscultation and percussion. No rales, rhonchi or wheezes noted. No increased work of breathing, no retractions or nasal flaring. Abdomen/GI: Soft, non-tender, with normal bowel sounds. No distension or tympany. No guarding or rebound. No evidence of tenderness throughout. Back: No spinal tenderness. No costovertebral tenderness. Full range of motion. Male : Normal genitalia with no discharge or lesions. Skin: Warm, dry with normal turgor. Normal color with no rashes, no lesions, and no evidence of cellulitis. Neuro: Awake and alert, GCS 15, oriented to person, place, time, and situation. Cranial nerves II-XII grossly intact. Motor strength 5/5 in all extremities. Sensory grossly intact. Cerebellar exam normal. Normal gait. Psych: Awake, alert, with orientation to person, place and time. Behavior, mood, and affect are within normal limits. 12:51 Musculoskeletal/extremity: Extremities: grossly normal except: pain, left wrist suture removal, ROM: intact in all extremities, full active range of motion, full passive range of motion, Pulses: are normal with no appreciated deficits, Sensation intact. Compartment Syndrome exam of affected extremity: is normal. Weight bearing: able to fully bear weight, Vital Signs: 12:25 BP 131 / 77; Pulse 91; Resp 18; Temp 98.2; Pulse Ox 99% on R/A; Weight 76.2 kg; Height db 5 ft. 11 in. ; 12:59 BP 128 / 74; Pulse 88; Resp 16; Pulse Ox 97% ; ko1 12:25 Body Mass Index 23.43 (76.20 kg, 180.34 cm) db MDM: 12:26 Patient medically screened. [facility] 12:52 Data reviewed: vital signs, nurses notes. Consideration of Admission/Observation collins Escalation of care including admission/observation considered. I considered the following discharge prescriptions or medication management in the emergency department Medications were administered in the Emergency Department. See MAR. Test considered but Not performed: Labs: no labs. Care significantly affected by the following chronic conditions: anxiety , depression. Counseling: I had a detailed discussion with the patient and/or guardian regarding the historical points, exam findings, and any diagnostic results supporting the discharge/admit diagnosis, the need for outpatient follow up, for definitive care, a family practitioner. 09/27 12:54 Order name: Wound Care; Complete Time: 13:01 [facility] 09/27 12:54 Order name: Suture Removal; Complete Time: 13:01 [facility] Administered Medications: 13:00 Drug: Azjnojjz-Ikbdufwlyo-Quuhocwth Topical Ointment 1 application Topical once Route: ko1 Topical; Site: wound; Disposition Summary: 09/28/23 12:53 Discharge Ordered Notes: Location: Home collins Problem: new collins Symptoms: have improved collins Condition: Stable collins Diagnosis - Encounter for removal of sutures collins Followup: collins - With: Private Physician - When: 5 - 6 days - Reason: Recheck today's complaints, Continuance of care, Re-evaluation by your physician Discharge Instructions: - Discharge Summary Sheet collins - Sutures, Sydni, or Adhesive Wound Closure collins - Suture Removal, Care After collins Forms: - Medication Reconciliation Form collins - Antibiotic Education collins - Prescription Opioid Use collins - Patient Portal Instructions collins - Leadership Thank You Letter collins Signatures: Primo Camilo MD MD cha Oliver, Kathy, RN RN ko1 Morena Parra RN RN db
[2023-09-28 13:54] VITALS: BP 128/74; TEMP 98.2; O2SAT 97
== END 2023-09-28 13:00 | disposition home or self-care (01) ==
LOC: ER 12:13
DX: Z48.02 Encounter for removal of sutures (principal)
CPT/HCPCS: 99284

== ENCOUNTER 2023-12-07 07:17 | Emergency (ER) | payer OTHER ==
--- NOTE | 2023-12-07 09:14 | ER ---
Nurse's Notes [facility] Name: Mariano Aldana Age: 38 yrs Sex: Male : 1985 Arrival Date: 12/07/2023 Time: 07:17 Bed 18 Private MD: Diagnosis: Anxiety;Depression;Auditory hallucination;Non-compliance with medication regimen Presentation: 12/06 07:55 Chief complaint: Patient states: he ran out of his home medications approx 2 weeks ago, ap3 and has been having anxiety after separation from his . patient denies any SI or HI at this time. patient is here requesting refills of his home medications. Coronavirus screen: At this time, the client does not indicate any symptoms associated with coronavirus-19. Ebola Screen: No symptoms or risks identified at this time. Initial Sepsis Screen: Does the patient meet any 2 criteria? No. Patient's initial sepsis screen is negative. Does the patient have a suspected source of infection? No. Patient's initial sepsis screen is negative. Risk Assessment: Do you want to hurt yourself or someone else? Patient reports no desire to harm self or others. Onset of symptoms is unknown. 07:55 Method Of Arrival: Ambulatory ap3 07:55 Acuity: KATHRYN 3 ap3 Triage Assessment: 07:57 General: Appears in no apparent distress. Behavior is calm, cooperative, appropriate ap3 for age. Pain: Denies pain. Neuro: Level of Consciousness is awake, alert, obeys commands, Oriented to person, place, time, situation, Appropriate for age. Cardiovascular: Patient's skin is warm and dry. Respiratory: Airway is patent Respiratory effort is even, unlabored, Respiratory pattern is regular, symmetrical. Historical: - Allergies: 07:29 No Known Allergies; ll1 - PMHx: 07:29 Anxiety; depressive disorder; ll1 - Immunization history:: Adult Immunizations up to date. - Infectious Disease History:: Denies. - Social history:: Smoking status: Patient reports the use of cigarette tobacco products, smokes one pack cigarettes per day. Reported history of juuling and/or vaping. Screenin:58 [facility] ED Fall Risk Assessment (Adult) History of falling in the last 3 months, ap3 including since admission No falls in past 3 months (0 pts) Confusion or Disorientation No (0 pts) Intoxicated or Sedated No (0 pts) Impaired Gait No (0 pts) Mobility Assist Device Used No (0 pt) Altered Elimination No (0 pt) Score/Fall Risk Level 0 - 2 = Low Risk Oriented to surroundings, Maintained a safe environment, Educated pt \\T\\ family on fall prevention, incl call for assistance when getting out of bed, Assessed \\T\\ reinforced patient's understanding of fall precautions, Hourly rounding (assess needs \\T\\ fall precautionary measures) done, Used ambulatory aids as needed (educated on \\T\\ assisted with), Used gait belt as appropriate. Abuse screen: Denies threats or abuse. Nutritional screening: No deficits noted. Tuberculosis screening: No symptoms or risk factors identified. Psych: 07:59 [place] Suicide Severity Screening: In the past month, have you wished you were ap3 or wished you could go to sleep and not wake up? Patient responds "No." "In the past month, have you actually had any thoughts of killing yourself?" Patient responds "no." "In your lifetime, have you ever done anything, started to do anything, or prepared to do anything to end your life?" Patient responds "yes." Patient reports suicidal intent occurred greater than 3 months prior. Subjective: Delusions are denied, Hallucinations are denied. Objective: Patient is cooperative, Speech is normal, Affect is appropriate. Interventions: Searched person for dangerous items. Urine collected and sent for urine drug test. Safety Checks: Door is open. Patient uses tobacco 1 pack. Vital Signs: 07:55 BP 126 / 95; Pulse 90; Resp 17; Temp 97.6; Pulse Ox 100% ; Weight 66.22 kg; Height 5 ap3 ft. 11 in. ; Pain 0/10; 09:19 BP 122 / 84; Pulse 84; Resp 16; Pulse Ox 100% ; ko1 07:55 Body Mass Index 20.36 (66.22 kg, 180.34 cm) ap3 07:55 Pain Scale: Adult ap3 ED Course: 07:20 Patient arrived in ED. ra3 07:28 Loraine Espinosa MD is Attending Physician. sd2 07:29 Arm band placed on Patient placed in an exam room, on a stretcher. ll1 07:55 Juliann Powell, OREN is Primary Nurse. ap3 07:56 Triage completed. ap3 08:00 Patient has correct armband on for positive identification. Bed in low position. Call ap3 light in reach. Pulse ox on. NIBP on. :15 Provided Education on: meds. ko1 :15 No provider procedures requiring assistance completed. Patient did not have IV access ko1 during this emergency room visit. Administered Medications: No medications were administered Medication: :15 VIS not applicable for this client. ko1 Outcome: :13 Discharge ordered by . sd2 10: Discharged to home ambulatory, ko1 10: Condition: stable 10: Discharge instructions given to patient, Instructed on discharge instructions, follow up and referral plans. medication usage, Demonstrated understanding of instructions, follow-up care, medications, Prescriptions given X 10 10:25 Patient left the ED. ko1 Signatures: Juliann Powell RN RN ap3 Roya Barba RN RN soham1 Loraine Espinosa MD MD sd2 Steffanie Edwards RN RN ko1 Teresa Coleman ra3 Corrections: (The following items were deleted from the chart) 10:12 09:19 Discharged to home ambulatory, ko1 ko1 10:12 09:19 Condition: stable ko1 ko1 10:12 :19 Discharge instructions given to patient, Instructed on discharge instructions, ko1 follow up and referral plans. medication usage, Demonstrated understanding of instructions, follow-up care, medications, ko1 10:24 10:22 Discharge instructions given to patient, Instructed on discharge instructions, ko1 follow up and referral plans. medication usage, Demonstrated understanding of instructions, follow-up care, medications, Prescriptions given X ko1
--- NOTE | 2023-12-07 09:14 | EDPHYS ---
Physician Documentation [facility] Name: Mariano Aldana Age: 38 yrs Sex: Male : 1985 Arrival Date: 12/07/2023 Time: 07:17 Bed 18 Private MD: ED Physician Loraine Espinosa HPI: 12/06 08:18 This 38 yrs old Male presents to ER via Ambulatory with complaints of Anxiety. sd2 08:18 38-year-old male presents with chief complaint of depression and anxiety. He reports sd2 that he has been out of his psychiatric medications for the past 2 weeks due to not having a ride to get to [facility] for refills. He states that when he is on his medication, everything is fairly well-controlled. He denies any suicidal or homicidal ideation. He reports hearing some small voices in the background which is normally controlled when he takes his Zyprexa. Denies any visual hallucinations or other symptoms.. Historical: - Allergies: 07:29 No Known Allergies; ll1 - PMHx: 07:29 Anxiety; depressive disorder; ll1 - Immunization history:: Adult Immunizations up to date. - Infectious Disease History:: Denies. - Social history:: Smoking status: Patient reports the use of cigarette tobacco products, smokes one pack cigarettes per day. Reported history of juuling and/or vaping. ROS: 08:18 Constitutional: Negative for fever, chills, and weight loss, Cardiovascular: Negative sd2 for chest pain, palpitations, and edema, Respiratory: Negative for shortness of breath, cough, wheezing. Abdomen/GI: Negative for abdominal pain, nausea, vomiting, diarrhea. MS/Extremity: Negative for injury and deformity, Psych: Positive for depression, anxiety and auditory hallucinations. Negative for SI, HI Exam: 08:18 Constitutional: This is a well developed, well nourished patient who is awake, alert, sd2 and in no acute distress. Head/Face: Normocephalic, atraumatic. Eyes: EOMI, normal conjunctiva bilaterally Cardiovascular: Regular rate and rhythm. Respiratory: No respiratory distress or increased work of breathing. Skin: Warm, dry with normal turgor. Normal color with no rashes, no lesions, and no evidence of cellulitis. MS/ Extremity: Pulses equal, no cyanosis. Neurovascular intact. Full, normal range of motion. Psych: Awake, alert, with orientation to person, place and time. Behavior, mood, and affect are within normal limits. Vital Signs: 07:55 BP 126 / 95; Pulse 90; Resp 17; Temp 97.6; Pulse Ox 100% ; Weight 66.22 kg; Height 5 ap3 ft. 11 in. ; Pain 0/10; 09:19 BP 122 / 84; Pulse 84; Resp 16; Pulse Ox 100% ; ko1 07:55 Body Mass Index 20.36 (66.22 kg, 180.34 cm) ap3 07:55 Pain Scale: Adult ap3 MDM: 08:02 Patient medically screened. sd2 08:18 Differential Diagnosis Medication refill, anxiety, depression, psychosis among others. sd2 Data reviewed: vital signs, nurses notes. I considered the following discharge prescriptions or medication management in the emergency department Medications were administered in the Emergency Department. See MAR. Care significantly affected by the following chronic conditions: Anxiety and depression. Counseling: I had a detailed discussion with the patient and/or guardian regarding the historical points, exam findings, and any diagnostic results supporting the discharge/admit diagnosis, the need for outpatient follow up, to return to the emergency department if symptoms worsen or persist or if there are any questions or concerns that arise at home. ED course: Patient is not currently a threat of harm to himself or others. He denies suicidal or homicidal ideation. His auditory hallucinations do not appear intrusive and he does not appear psychotic at this time to the point where he would need inpatient placement or an CELE. The patient is comfortable with receiving the first dose of his medications here and receiving a short course of medication refills since he is able to provide his medications and dosages. He will follow-up with [facility] and states he will now be able to do that within the next 2 weeks.. Administered Medications: No medications were administered Disposition Summary: 12/07/23 09:13 Discharge Ordered Problem: an acute exacerbation sd2 Symptoms: are unchanged sd2 Condition: Stable sd2 Diagnosis - Anxiety sd2 - Depression sd2 - Auditory hallucination sd2 - Non-compliance with medication regimen sd2 Followup: sd2 - With: Private Physician - When: 1 - 2 days - Reason: Recheck today's complaints, Continuance of care, Re-evaluation by your physician Discharge Instructions: - Discharge Summary Sheet sd2 - Medicine Refill at the Emergency Department sd2 Forms: - Medication Reconciliation Form sd2 - Antibiotic Education sd2 - Prescription Opioid Use sd2 - Patient Portal Instructions sd2 - Leadership Thank You Letter sd2 Prescriptions: - Seroquel 50 mg Oral tablet - take 1 tablet ORAL route every day at bedtime; 14 tablet; Refills: 0, Product sd2 Selection Permitted - acamprosate 333 mg Oral tablet, delayed release (enteric coated) - take 1 tablet ORAL route 3 times per day; 42 tablet; Refills: 0, Product sd2 Selection Permitted - baclofen 20 mg Oral tablet - take 1 tablet ORAL route 4 times per day; 56 tablet; Refills: 0, Product sd2 Selection Permitted - bupropion HCl 150 mg Oral tablet, sustained-release 12 hr - take 2 tablet ORAL route once daily; 28 tablet; Refills: 0, Product Selection sd2 Permitted - buspirone 15 mg Oral tablet - take 1 tablet ORAL route once daily; 14 tablet; Refills: 0, Product Selection sd2 Permitted - naltrexone 50 mg Oral tablet - take 1 tablet ORAL route daily; 14 tablet; Refills: 0, Product Selection sd2 Permitted - olanzapine 20 mg Oral Tablet,disintegrating - take 1 tablet ORAL route daily; 14 tablet; Refills: 0, Product Selection sd2 Permitted - Hydroxyzine HCl 50 mg Oral tablet - take 1 tablet ORAL route every 6 hours As needed; 20 tablet; Refills: 0, sd2 Product Selection Permitted - Propranolol 20 mg Oral tablet - take 1 tablet ORAL route every 6 hours; 40 tablet; Refills: 0, Product sd2 Selection Permitted - Fluoxetine 40 mg Oral capsule - take 1 capsule ORAL route once daily in the morning; 14 tablet; Refills: 0, sd2 Product Selection Permitted Signatures: Juliann Powell RN RN ap3 Roya Barba RN RN ll1 Loraine Espinosa MD MD sd2
[2023-12-07] MEDS ORDERED: PROPRANOLOL HCL 40 MG TAB ONE (10:18)
[2023-12-07] MEDS ORDERED: hydrOXYzine HCL 25 MG TAB ONE (10:18)
[2023-12-07 10:31] VITALS: TEMP 97.6; O2SAT 100
[2023-12-07 10:32] VITALS: BP 122/84
== END 2023-12-07 10:25 | disposition home or self-care (01) ==
LOC: ER 07:17
DX: F41.9 Anxiety disorder, unspecified (principal); F32.A Depression, unspecified; R44.0 Auditory hallucinations; Z91.148 Patient's other noncompliance with medication regimen for other reason
CPT/HCPCS: 99283

== ENCOUNTER 2023-12-07 10:43 | Emergency (ER) | payer OTHER ==
--- NOTE | 2023-12-07 11:55 | ER ---
Nurse's Notes [facility] Name: Mariano Aldana Age: 38 yrs Sex: Male : 1985 Arrival Date: 12/07/2023 Time: 10:43 Bed [id number] Private MD: Diagnosis: Presentation: 12/06 10:55 Chief complaint: Patient states: has been really depressed and is going through a iw separation from his , has been feeling like he wants to walk out in traffic to kill himself, has been off his meds for a while, but takes his anxiety meds as needed. Risk Assessment: Do you want to hurt yourself or someone else? Patient reports no desire to harm self or others. 10:55 Method Of Arrival: Ambulatory iw 10:55 Acuity: KATHRYN 2 iw 10:57 Coronavirus screen: At this time, the client does not indicate any symptoms associated iw with coronavirus-19. Ebola Screen: No symptoms or risks identified at this time. 10:57 Initial Sepsis Screen: Does the patient meet any 2 criteria? No. Patient's initial iw sepsis screen is negative. Does the patient have a suspected source of infection? No. Patient's initial sepsis screen is negative. Onset of symptoms was December 07, 2023. Historical: - Allergies: 10:58 No Known Allergies; iw - PMHx: 10:57 Anxiety; depressive disorder; iw - Immunization history:: Adult Immunizations not up to date. - Infectious Disease History:: Denies. - Social history:: Smoking status: Patient reports the use of cigarette tobacco products, Patient uses alcohol, weekly. street drugs, Methamphetamine (Meth). Assessment: 10:53 General: Appears comfortable, Behavior is anxious. Pain: Denies pain. Neuro: Level of ap3 Consciousness is awake, alert, obeys commands, Oriented to person, place, time, situation. Cardiovascular: Patient's skin is warm and dry. Respiratory: Airway is patent Respiratory effort is even, unlabored, Respiratory pattern is regular, agonal. 11:14 Reassessment: ERP at bedside. patient made phone call to family who is in route from [facility] [place] of [place]. family states they are currently in [place], and would be here around 1400. patient reports he is safe to go and would like to leave to get his medications filled, and meet his family. Patient informed ERP, this nurse and his family he would like to leave, and walked out of the evaluation. Vital Signs: 10:57 BP 126 / 84; Pulse 95; Resp 16; Temp 97; Pulse Ox 100% on R/A; Weight 66.22 kg; Height iw 5 ft. 11 in. ; Pain 0/10; 10:57 Body Mass Index 20.36 (66.22 kg, 180.34 cm) iw 10:57 Pain Scale: Adult iw ED Course: 10:45 Patient arrived in ED. ra3 10:47 Primo Camilo MD is Attending Physician. collins 10:53 Loraine Espinosa MD is Attending Physician. ll1 10:56 Triage completed. iw 10:59 Arm band placed on. iw Administered Medications: No medications were administered Outcome: 11:54 Patient left the ED. ap3 Signatures: Primo Camilo MD MD cha Williams, Irene, RN RN iw Juliann Powell RN RN ap3 Roya Barba RN RN ll1 Loraine Espinosa MD MD sd2 Teresa Coleman ra3 Corrections: (The following items were deleted from the chart) 10:57 10:55 Chief complaint: Patient states: has been really depressed and is going through a iw separation from his , has been feeling like he wants to walk out in traffic to kill himself, has been off his meds for a while, but takes his anxiety meds as needed iw 11:00 10:57 BP 126 / 84; Pulse 95bpm; Resp 16bpm; Pulse Ox 100% RA; Temp 97F; iw iw
--- NOTE | 2023-12-07 11:55 | EDPHYS ---
Physician Documentation [facility] Name: Mariano Aldana Age: 38 yrs Sex: Male : 1985 Arrival Date: 12/07/2023 Time: 10:43 Bed IW10 Private MD: ED Physician Loraine Espinosa HPI: 12/06 11:26 This 38 yrs old Male presents to ER via Ambulatory with complaints of Suicidal Ideation.sd2 11:26 38-year-old male returns to the ER after being seen by me earlier today with complaint sd2 of suicidal ideation. Per report, he told the triage nurse that he was having thoughts of wanting to harm himself. Now, at time of my reevaluation, he states that he no longer has those thoughts and that was a "passing thought." He also reports his family is driving in from [place] and he would like to leave to go see them. Denies HI. Previously endorsed auditory hallucinations at the time of his last visit. . Historical: - Allergies: 10:58 No Known Allergies; iw - PMHx: 10:57 Anxiety; depressive disorder; iw - Immunization history:: Adult Immunizations not up to date. - Infectious Disease History:: Denies. - Social history:: Smoking status: Patient reports the use of cigarette tobacco products, Patient uses alcohol, weekly. street drugs, Methamphetamine (Meth). ROS: 11:26 Constitutional: Negative for fever, chills, and weight loss, Eyes: Negative for injury, sd2 pain, redness, and discharge, Skin: Negative for injury, rash, and discoloration, Psych: Positive for depression, anxiety, AH. Exam: 11:26 Constitutional: This is a well developed, well nourished patient who is awake, alert, sd2 and in no acute distress. Head/Face: Normocephalic, atraumatic. Cardiovascular: Regular rate and rhythm with a normal S1 and S2. No gallops, murmurs, or rubs. 2+ distal pulses. Respiratory: Lungs have equal breath sounds bilaterally, clear to auscultation and percussion. No rales, rhonchi or wheezes noted. No increased work of breathing, no retractions or nasal flaring. Skin: Warm, dry with normal turgor. Normal color with no rashes, no lesions, and no evidence of cellulitis. MS/ Extremity: Pulses equal, no cyanosis. Neurovascular intact. Full, normal range of motion. Psych: Awake, alert, with orientation to person, place and time. Behavior, mood, and affect are within normal limits. Vital Signs: 10:57 BP 126 / 84; Pulse 95; Resp 16; Temp 97; Pulse Ox 100% on R/A; Weight 66.22 kg; Height iw 5 ft. 11 in. ; Pain 0/10; 10:57 Body Mass Index 20.36 (66.22 kg, 180.34 cm) iw 10:57 Pain Scale: Adult iw MDM: 10:47 Patient medically screened. [facility] 11:26 Differential diagnosis: drug withdrawal. acute psychotic break, depression, psychosis sd2 secondary to non-compliance, among others. Data reviewed: vital signs, nurses notes. Care significantly affected by the following chronic conditions: Anxiety, depression. ED course: Pt states his family will come pick him up from the hospital. Called them on the phone and they are still 3 hours away in [place], [place], on their way in. Pt not allowing me to speak with his parents in more detail or to stay in the ER to safety contract. He is not currently under an CELE and did not endorse SI with me. Therefore, he was not held against his will and he walked out of the room without completing further workup or discussion with me after MSE completed. . Administered Medications: No medications were administered Disposition: 11:26 Left after MSE completed. sd2 Disposition Summary: 12/07/23 11:54 Eloped Notes: Disposition: after being seen by provider ap3 Reason: unknown ap3 Signatures: Primo Camilo MD MD cha Williams, Irene RN OREN iw Juliann Powell RN RN ap3 Loraine Espinosa MD MD sd2
[2023-12-07 11:59] VITALS: BP 126/84; TEMP 97; O2SAT 100
== END 2023-12-07 11:54 | disposition left against medical advice (07) ==
LOC: ER 10:43
DX: R45.851 Suicidal ideations (principal)
CPT/HCPCS: 99281

== ENCOUNTER 2024-04-15 18:28 | Emergency (ER) | payer OTHER, SELFPAY ==
[2024-04-15] MEDS ORDERED: HYDROCODONE/APAP 5/325 MG TAB ONE (18:38)
[2024-04-15] MEDS ORDERED: IBUPROFEN 400 MG TAB ONE (18:38)
--- NOTE | 2024-04-15 21:02 | RAD REPORT ---
EXAMINATION: XR Foot Right 3 View CLINICAL INDICATION: Male, 38 years old. [facility] MAIN PAIN Bed: TECHNIQUE: 3 view radiographs of the right foot were obtained. COMPARISON: No prior exam. FINDINGS: Mildly displaced oblique fracture of the body of the calcaneus, potentially reaching the morrow btalar articulation. No evidence of arthropathy or other focal bone lesion. Soft tissue swelling about the heel. No significant degenerative changes. IMPRESSION: Mildly displaced calcaneal fracture as above.
--- NOTE | 2024-04-15 21:04 | RAD REPORT ---
EXAMINATION: XR Foot Left 3 View CLINICAL INDICATION: Male, 38 years old. [facility] MAIN PAIN TECHNIQUE: 3 view radiographs of the left foot were obtained. COMPARISON: No prior exam. FINDINGS: Cortical irregularity along the lateral margin of the calcaneus with periosteal reaction, s uggesting a healing nondisplaced fracture. No evidence of arthropathy or other focal bone lesion. Soft tissue swelling about the heel. No significant degenerative changes. IMPRESSION: Suggestion of healing nondisplaced calcaneal fracture.
--- NOTE | 2024-04-15 21:05 | RAD REPORT ---
EXAMINATION: XR Ankle Left 3 View CLINICAL INDICATION: Male, 38 years old. [facility] MAIN PAIN TECHNIQUE: 3 view radiographs of the left ankle were obtained. COMPARISON: No prior exam. FINDINGS: Cortical irregularity along the posterior margin of the calcaneus, suggesting minimally dis placed fracture. Sclerotic line along the base of the calcaneus, may relate to trabecular impaction. Soft tissue swelling about the heel. Ankle joint alignment appears well maintained. Subtal ar joint also appears grossly well-maintained. IMPRESSION: Findings suggesting fracture of the calcaneus disease as above.
--- NOTE | 2024-04-15 21:06 | RAD REPORT ---
EXAMINATION: XR Ankle Right 3 View CLINICAL INDICATION: Male, 38 years old. [facility] MAIN PAIN Bed: TECHNIQUE: 3 view radiographs of the right ankle were obtained. COMPARISON: No prior exam. FINDINGS: Oblique fracture of the body of calcaneus, reaching the inferior articular cortex with mild displacement. Potentially, fracture reaches the subtalar joint. Soft tissue swelling about the heel. Tibiotalar articulation appears grossly well-maintained on these nonweightbearing views. IMPRESSION: Mildly displaced body/base of right calcaneus fracture.
--- NOTE | 2024-04-15 21:08 | EDPHYS ---
Physician Documentation [facility] Name: Mariano Aldana Age: 38 yrs Sex: Male : 1985 Arrival Date: 04/15/2024 Time: 18:28 Bed IW1 Private MD: ED Physician Primo Camilo HPI: 04/15 18:39 This 38 yrs old Male presents to ER via Unassigned with complaints of Ankle Injury. sb4 18:39 Patient states that he jumped over a 7 ft fence and landed on his heels hard. Is sb4 complaining of pain to bilateral heels and ankles. States that it is difficult for him to bear weight. Is able to move his toes and ankles. Reports some tingling in his feet. Does report some prior injuries. Has not taken any medication prior to arrival. Denies any other injuries. Historical: - Allergies: 18:39 No Known Allergies; ko1 - Home Meds: 18:39 None [Active]; ko1 - PMHx: 18:39 Anxiety; depressive disorder; ko1 - PSHx: 18:39 None; ko1 - Immunization history:: Adult Immunizations unknown. - Infectious Disease History:: Denies. - Social history:: Smoking status: Patient reports the use of cigarette tobacco products, smokes one pack cigarettes per day. ROS: 18:42 Constitutional: Negative for fever, chills, and weight loss, sb4 18:42 MS/extremity: Positive for injury or acute deformity, pain, of the right and left heels and ankles, Exam: 18:44 Constitutional: This is a well developed, well nourished patient who is awake, alert, sb4 and in no acute distress. Head/Face: Normocephalic, atraumatic. Eyes: Extra-ocular motions intact. Periorbital areas with no swelling, redness, or edema. ENT: Mucous membranes moist. Respiratory: No increased work of breathing, no retractions or nasal flaring. Skin: Warm, dry with normal turgor. Normal color with no rashes, no lesions, and no evidence of cellulitis. 18:44 Musculoskeletal/extremity: ROM: limited active range of motion due to pain, limited passive range of motion due to pain, in the right foot and left foot, Circulation is intact in all extremities. Pulses: are normal with no appreciated deficits, Sensation intact. Vital Signs: 18:37 BP 132 / 85; Pulse 98; Resp 15; Temp 97; Pulse Ox 99% ; ko1 MDM: 18:34 Medical Screening Exam initiated sb4 20:44 Data reviewed: vital signs, nurses notes, radiologic studies, and as a result, I will sb4 discharge patient. Awaiting: X-ray results. 21:07 Counseling: I had a detailed discussion with the patient and/or guardian regarding the sb4 historical points, exam findings, and any diagnostic results supporting the discharge/admit diagnosis, radiology results, the need for outpatient follow up, a orthopedic surgeon, to return to the emergency department if symptoms worsen or persist or if there are any questions or concerns that arise at home. 04/15 19:15 Order name: Ankle Right 3 View; Complete Time: 21:07 EDMS 04/15 19:16 Order name: Ankle Left 3 View; Complete Time: 21:07 EDRI 04/15 19:16 Order name: Foot Right 3 View; Complete Time: 21:02 EDRI 04/15 19:17 Order name: Foot Left 3 View; Complete Time: 21:05 EDRI 04/15 21:07 Order name: Walking boot; Complete Time: 21:30 sb4 04/15 21:07 Order name: Crutches; Complete Time: 21:30 sb4 Administered Medications: 18:43 Drug: HYDROcodone-acetaminophen PO 5 mg-325 mg 1 tabs PO once Route: PO; ko1 21:26 Follow up: Response: No adverse reaction; Marked relief of symptoms vc1 18:43 Drug: Ibuprofen PO 800 mg PO once Route: PO; ko1 21:26 Follow up: Response: No adverse reaction; Marked relief of symptoms vc1 Disposition Summary: 04/15/24 21:07 Discharge Ordered Notes: Location: Home sb4 Problem: new sb4 Symptoms: are unchanged sb4 Condition: Stable sb4 Diagnosis - Nondisplaced fracture of body of right calcaneus sb4 Followup: sb4 - With: Hermilo Regan MD - When: 2 - 3 days - Reason: Further diagnostic work-up, Recheck today's complaints, Re-evaluation by your physician Discharge Instructions: - Discharge Summary Sheet sb4 - Calcaneal Fracture Repair Surgery sb4 Forms: - Patient Portal Instructions sb4 - Leadership Thank You Letter sb4 Prescriptions: - Diclofenac Sodium 75 mg Oral Tablet Sustained Release - take 1 tablet ORAL route 2 times per day; 30 tablet; Refills: 0, Product sb4 Selection Permitted Addendum: 04/18/2024 07:31 Co-signature as Attending Physician, Primo Camilo MD I agree with the assessment and c golden plan of care. Signatures: Dispatcher [employer] EDPrimo Glover MD MD cha Oliver, Kathy RN RN ko1 Jigna Todd PA-C PAPadmini sb4 Calcote, Odalys LOTT vc1 Corrections: (The following items were deleted from the chart) 04/15 18:53 18:39 Social history: Smoking status: Patient reports the use of cigarette tobacco ko1 products, smokes one pack cigarettes per day. ko1 19:15 18:39 Ankle Right W Comparison+RAD.RAD.BRZ ordered. EDMS EDMS 19:16 18:39 Foot Right W Compar+RAD.RAD.BRZ ordered. EDMS EDMS
--- NOTE | 2024-04-15 21:08 | ER ---
Nurse's Notes [facility] Name: Mariano Aldana Age: 38 yrs Sex: Male : 1985 Arrival Date: 04/15/2024 Time: 18:28 Bed IW1 Private MD: Diagnosis: Nondisplaced fracture of body of right calcaneus Presentation: 04/15 18:37 Chief complaint: Patient states: jumped a fence (about 7ft) landed on heels and both ko1 ankles hurt. Happened about an hour or so ago. Coronavirus screen: At this time, the client does not indicate any symptoms associated with coronavirus-19. Ebola Screen: No symptoms or risks identified at this time. Initial Sepsis Screen: Does the patient meet any 2 criteria? No. Patient's initial sepsis screen is negative. Does the patient have a suspected source of infection? No. Patient's initial sepsis screen is negative. Risk Assessment: Do you want to hurt yourself or someone else? Patient reports no desire to harm self or others. Onset of symptoms was April 15, 2024. 18:37 Method Of Arrival: Wheelchair ko1 18:37 Acuity: KATHRYN 4 ko1 Triage Assessment: 18:39 General: Appears in no apparent distress. Behavior is calm, cooperative, appropriate ko1 for age. Pain: Complains of pain in bilateral ankles and feet. 18:39 General: Smells of marijuana. ko1 Historical: - Allergies: 18:39 No Known Allergies; ko1 - Home Meds: 18:39 None [Active]; ko1 - PMHx: 18:39 Anxiety; depressive disorder; ko1 - PSHx: 18:39 None; ko1 - Immunization history:: Adult Immunizations unknown. - Infectious Disease History:: Denies. - Social history:: Smoking status: Patient reports the use of cigarette tobacco products, smokes one pack cigarettes per day. Screenin:27 [facility] ED Fall Risk Assessment (Adult) History of falling in the last 3 months, vc1 including since admission No falls in past 3 months (0 pts) Confusion or Disorientation No (0 pts) Intoxicated or Sedated No (0 pts) Impaired Gait No (0 pts) Mobility Assist Device Used No (0 pt) Altered Elimination No (0 pt) Score/Fall Risk Level 0 - 2 = Low Risk Oriented to surroundings, Maintained a safe environment, Educated pt \T\ family on fall prevention, incl call for assistance when getting out of bed, Provided non-skid footwear. Abuse screen: Denies threats or abuse. Nutritional screening: No deficits noted. Tuberculosis screening: No symptoms or risk factors identified. Assessment: 21:29 Reassessment: Patient appears in no apparent distress at this time. Patient and/or vc1 family updated on plan of care and expected duration. Pain level reassessed. Patient is alert, oriented x 3, equal unlabored respirations, skin warm/dry/pink. Patient states symptoms have improved. Vital Signs: 18:37 BP 132 / 85; Pulse 98; Resp 15; Temp 97; Pulse Ox 99% ; ko1 ED Course: 18:31 Patient arrived in ED. sj2 18:32 Jigna Todd PA-C is PHCP. sb4 18:32 Primo Camilo MD is Attending Physician. sb4 18:39 Triage completed. ko1 18:39 Arm band placed on right wrist. Patient placed in waiting room, Patient notified of ko1 wait time. 19:38 Ankle Right 3 View In Process Unspecified. EDMS 19:38 Ankle Left 3 View In Process Unspecified. EDMS 19:38 Foot Right 3 View In Process Unspecified. EDMS 19:38 Foot Left 3 View In Process Unspecified. EDMS 21:07 Hermilo Regan MD is Referral Physician. sb4 21:27 No provider procedures requiring assistance completed. Patient did not have IV access vc1 during this emergency room visit. 21:28 Patient has correct armband on for positive identification. treated from triage. vc1 Provided Education on: ortho shoe. 21:31 Crutch training done. Ortho shoe applied to right foot. vc1 Administered Medications: 18:43 Drug: HYDROcodone-acetaminophen PO 5 mg-325 mg 1 tabs PO once Route: PO; ko1 21:26 Follow up: Response: No adverse reaction; Marked relief of symptoms vc1 18:43 Drug: Ibuprofen PO 800 mg PO once Route: PO; ko1 21:26 Follow up: Response: No adverse reaction; Marked relief of symptoms vc1 Medication: 21:27 VIS not applicable for this client. vc1 Outcome: 21:07 Discharge ordered by . sb4 21:28 Discharged to home ambulatory, with crutches, with ortho shoe vc1 21:28 Condition: good 21:28 Discharge instructions given to patient, Instructed on discharge instructions, follow up and referral plans. medication usage, Demonstrated understanding of instructions, follow-up care, medications, Prescriptions given X 1, 21:31 Patient left the ED. vc1 Signatures: Dispatcher [employer] EDMS Odalys Doe RN RN vc1 Steffanie Edwards RN RN ko1 Jigna Todd PA-C PAPadmini sb4 Yi Skinner sj2 Corrections: (The following items were deleted from the chart) 18:53 18:39 Social history: Smoking status: Patient reports the use of cigarette tobacco ko1 products, smokes one pack cigarettes per day. ko1
[2024-04-15 22:26] VITALS: BP 132/85; TEMP 97; O2SAT 99
== END 2024-04-15 21:31 | disposition home or self-care (01) ==
LOC: ER 18:28
DX: S92.014A Nondisplaced fracture of body of right calcaneus, initial encounter for closed fracture (principal); Y93.39 Activity, other involving climbing, rappelling and jumping off; F17.210 Nicotine dependence, cigarettes, uncomplicated
CPT/HCPCS: 99283

== ENCOUNTER 2024-04-18 15:04 | Emergency (ER) | payer SELFPAY ==
[2024-04-18] MEDS ORDERED: HYDROCODONE/APAP 7.5/325 MG TAB ONE (15:22)
--- NOTE | 2024-04-18 15:26 | EDPHYS ---
Physician Documentation [facility] Name: Mariano Aldana Age: 38 yrs Sex: Male : 1985 Arrival Date: 04/18/2024 Time: 15:04 Bed DX5 Private MD: ED Physician Ky Estrada HPI: 04/18 15:18 This 38 yrs old Male presents to ER via Unassigned with complaints of Pain is worse. kb 15:18 Pt is a 38 year old male who presents for pain to bilateral heels due to fractures that kb occurred 3 days ago. States he has not been able to bear weight and the medication prescribed is not helping the pain. Denies new injury or trauma. . Historical: - Allergies: 15:22 No Known Allergies; ll1 - PMHx: 15:22 Anxiety; depressive disorder; ll1 - Immunization history:: Adult Immunizations up to date. - Infectious Disease History:: Denies. - Social history:: Smoking status: Patient reports the use of cigarette tobacco products, smokes one pack cigarettes per day. ROS: 15:18 Constitutional: As per HPI kb Exam: 15:18 Constitutional: This is a well developed, well nourished patient who is awake, alert, kb and in no acute distress. Head/Face: Normocephalic, atraumatic. ENT: Moist Mucous membranes Cardiovascular: Regular rate Respiratory: Respirations even and unlabored. No increased work of breathing. Talking in full sentences Skin: Warm, dry with normal turgor. Normal color. Neuro: Awake and alert, GCS 15, oriented to person, place, time, and situation. Vital Signs: 15:22 BP 122 / 92; Pulse 115; Resp 15; Temp 98.7; Pulse Ox 100% ; Weight 71.67 kg; Height 5 ll1 ft. 11 in. ; Pain 8/10; 15:22 Body Mass Index 22.04 (71.67 kg, 180.34 cm) ll1 15:22 Pain Scale: Adult ll1 MDM: 15:08 Medical Screening Exam initiated kb 15:20 Differential diagnosis: fracture, contusion, acute pain. Data reviewed: vital signs, kb nurses notes. Test considered but Not performed: X-ray: xray considered but were recently done and pt hasn't had new injury. xrays from 04/15/24 reviewed. . Counseling: I had a detailed discussion with the patient and/or guardian regarding the historical points, exam findings, and any diagnostic results supporting the discharge/admit diagnosis, radiology results, the need for outpatient follow up, a family practitioner, to return to the emergency department if symptoms worsen or persist or if there are any questions or concerns that arise at home. Administered Medications: 15:28 Drug: Hydrocodone-Acetaminophen PO (7.5 mg-325 mg) 1 tabs PO once {Note: pain / RASS ll1 0.} Route: PO; 15:31 Follow up: Response: No adverse reaction; Pain is unchanged, physician notified ll1 Disposition Summary: 04/18/24 15:25 Discharge Ordered Notes: Location: Home kb Condition: Stable kb Diagnosis - Nondisplaced fracture of body of right calcaneus kb Followup: kb - With: Emergency Department - When: As needed - Reason: Worsening of condition Followup: kb - With: Private Physician - When: 2 - 3 days - Reason: Recheck today's complaints, Continuance of care, Re-evaluation by your physician Discharge Instructions: - Discharge Summary Sheet kb - Calcaneal Fracture Repair Surgery kb Forms: - Medication Reconciliation Form kb - Antibiotic Education kb - Prescription Opioid Use kb - Patient Portal Instructions kb - Leadership Thank You Letter kb Prescriptions: - orphenadrine citrate 100 mg Oral Tablet Sustained Release - take 1 tablet ORAL route 2 times per day As needed; 20 tablet; Refills: 0, kb Product Selection Permitted Signatures: Cadence Baires, WILIAN ALVES-Roya Acevedo RN RN ll1
--- NOTE | 2024-04-18 15:26 | ER ---
Nurse's Notes [facility] Name: Mariano Aldana Age: 38 yrs Sex: Male : 1985 Arrival Date: 04/18/2024 Time: 15:04 Bed DX5 Private MD: Diagnosis: Nondisplaced fracture of body of right calcaneus Presentation: 04/18 15:22 Chief complaint: Patient states: B heel pain continues since last visit here 04/15. ll1 Coronavirus screen: Client denies travel out of the [place] in the last 14 days. At this time, the client does not indicate any symptoms associated with coronavirus-19. Ebola Screen: Patient denies travel to an Ebola-affected area in the 21 days before illness onset. Initial Sepsis Screen: Does the patient meet any 2 criteria? No. Patient's initial sepsis screen is negative. Does the patient have a suspected source of infection? No. Patient's initial sepsis screen is negative. Risk Assessment: Do you want to hurt yourself or someone else? Patient reports no desire to harm self or others. Onset of symptoms was April 14, 2024. 15:22 Method Of Arrival: Wheelchair ll1 15:22 Acuity: KATHRYN 4 ll1 Triage Assessment: 15:22 General: Appears uncomfortable, Behavior is calm, cooperative, appropriate for age. ll1 Pain: Complains of pain in right foot and left foot Pain currently is 9 out of 10 on a pain scale. Quality of pain is described as aching. Musculoskeletal: Circulation, motion, and sensation intact. Capillary refill < 3 seconds, in bilateral toes. Reports pain in right foot and left foot. Historical: - Allergies: 15:22 No Known Allergies; ll1 - PMHx: 15:22 Anxiety; depressive disorder; ll1 - Immunization history:: Adult Immunizations up to date. - Infectious Disease History:: Denies. - Social history:: Smoking status: Patient reports the use of cigarette tobacco products, smokes one pack cigarettes per day. Screenin:31 [facility] ED Fall Risk Assessment (Adult) History of falling in the last 3 months, ll1 including since admission Yes- single mechanical fall (1 pt) Confusion or Disorientation No (0 pts) Intoxicated or Sedated No (0 pts) Impaired Gait Yes (1 pt) Mobility Assist Device Used Yes (1 pt) Altered Elimination Yes (1 pt) Score/Fall Risk Level 3 or more points = High Risk Maintained a safe environment, Hourly rounding (assess needs \T\ fall precautionary measures) done. Abuse screen: Denies threats or abuse. Nutritional screening: No deficits noted. Tuberculosis screening: No symptoms or risk factors identified. Assessment: 15:33 Reassessment: No changes from previously documented assessment. Patient and/or family ll1 updated on plan of care and expected duration. Pain level reassessed. Vital Signs: 15:22 BP 122 / 92; Pulse 115; Resp 15; Temp 98.7; Pulse Ox 100% ; Weight 71.67 kg; Height 5 ll1 ft. 11 in. ; Pain 8/10; 15:22 Body Mass Index 22.04 (71.67 kg, 180.34 cm) ll1 15:22 Pain Scale: Adult ll1 ED Course: 15:07 Patient arrived in ED. ra3 15:08 Cad[facility]aires [facility] kb 15:08 Ky Estrada MD is Attending Physician. kb 15:22 Arm band placed on. ll1 15:23 Triage completed. ll1 15:32 No provider procedures requiring assistance completed. Patient did not have IV access ll1 during this emergency room visit. 15:33 Patient has correct armband on for positive identification. Provided Education on: ER ll1 procedures and process. Administered Medications: 15:28 Drug: Hydrocodone-Acetaminophen PO (7.5 mg-325 mg) 1 tabs PO once {Note: pain 9/10 RASS ll1 0.} Route: PO; 15:31 Follow up: Response: No adverse reaction; Pain is unchanged, physician notified ll1 Medication: 15:33 VIS not applicable for this client. ll1 Outcome: 15:25 Discharge ordered by . kb 15:32 Discharged to home via wheelchair, ll1 15:32 Condition: stable 15:32 Discharge instructions given to patient, Instructed on discharge instructions, follow up and referral plans. medication usage, Demonstrated understanding of instructions, follow-up care, medications, Prescriptions given X 1, 15:33 Patient left the ED. ll1 Signatures: Cadence Baires FNP-C FNP-Ckb Lewis, Lynsay, RN RN ll1 Teresa Coleman ra3
[2024-04-18 17:11] VITALS: BP 122/92; TEMP 98.7; O2SAT 100
== END 2024-04-18 15:33 | disposition home or self-care (01) ==
LOC: ER 15:04
DX: S92.014A Nondisplaced fracture of body of right calcaneus, initial encounter for closed fracture (principal)
CPT/HCPCS: 99283